=== PATIENT | male | born 1940 | race Caucasian/White ===

== ENCOUNTER 2019-04-24 07:40 | Emergency (ER) | payer OTHER, MEDICAID ==
[~2019-04-24] VITALS: Ht 180.3 cm; Wt 102.1 kg
[~2019-04-24 07:40] MED LIST: AUGMENTIN 875875 MG PO; NORCO 5-325 TA1 EACH PO
[2019-04-24] MEDS ORDERED: TOPROL XL50 MG PO (07:45)
[2019-04-24] MEDS ORDERED: ELIQUIS2.5 MG PO (07:45)
[2019-04-24] MEDS ORDERED: ASA81BEC PO (07:46)
[2019-04-24] MEDS ORDERED: AMIODARONE HCL400 MG PO (07:46)
[2019-04-24] MEDS ORDERED: LIPITOR10 MG PO (07:47)
[2019-04-24] MEDS ORDERED: KEFLEX500 M2 PO (07:47)
[2019-04-24] MEDS ORDERED: LASIX 40 MG TAB40 MG PO (07:47)
[2019-04-24] MEDS ORDERED: B-121000 MC2 PO (07:47)
[2019-04-24] MEDS ORDERED: NEURONTIN100 MG PO (07:47)
[2019-04-24] MEDS ORDERED: NEXIUM5 MG PO (07:47)
[2019-04-24] MEDS ORDERED: COUMADIN 3 MG TA3 MG PO (07:48)
[2019-04-24] MEDS ORDERED: SYNTHROID100 MC1 PO (07:48)
[2019-04-24] MEDS ORDERED: MIDODRINE HCL 55 M1 PO (07:48)
[2019-04-24] MEDS ORDERED: PROAIR HFA8.5 GM INH (07:48)
[2019-04-24] MEDS ORDERED: SYNTHROID50 MCG PO (07:48)
[2019-04-24 08:14] VITALS: BP 153/93
== END 2019-04-24 08:16 | disposition home or self-care (01) ==
LOC: M.ERS 07:40
DX: J95.09 Other tracheostomy complication (principal); I10 Essential (primary) hypertension; Y83.8 Other surgical procedures as the cause of abnormal reaction of the patient, or of later complication, without mention of misadventure at the time of the procedure; Y82.8 Other medical devices associated with adverse incidents

== ENCOUNTER → 2021-01-01 | Outpatient (CLI) | payer OTHER, MEDICAID ==
[~2021-01-01] MED LIST changes: +AMIODARONE HCL400 MG PO; +ASA81BEC PO; +B-121000 MC2 PO; +COUMADIN 3 MG TA3 MG PO; +ELIQUIS2.5 MG PO; +KEFLEX500 M2 PO; +LASIX 40 MG TAB40 MG PO; +LIPITOR10 MG PO; +MIDODRINE HCL 55 M1 PO; +NEURONTIN100 MG PO; +NEXIUM5 MG PO; +PROAIR HFA8.5 GM INH; +SYNTHROID100 MC1 PO; +SYNTHROID50 MCG PO; +TOPROL XL50 MG PO
== END ==
LOC: M.RAD 09:52
PROVIDERS: ATTEND Internal Medicine Critical Care Medicine
DX: R13.13 Dysphagia, pharyngeal phase (principal)